=== PATIENT | female | born 1965 ===

== ENCOUNTER 2020-03-03 21:56 | Outpatient (REF) | payer OTHER, SELFPAY ==
[2020-03-05 23:42] LABS: COVID-19 RT-PCR Result NEGATIVE (Negative)
== END 2020-03-03 22:16 ==
LOC: NCHCN 21:56
PROVIDERS: Visit Provider Nurse Practitioner Community Health
DX: B34.9 Viral infection, unspecified (principal)
CPT/HCPCS: U0003